=== PATIENT | male | born 1960 | race Caucasian/White ===

== ENCOUNTER 2017-02-26 06:34 | Emergency (ER) | payer BC ==
[2017-02-26] MEDS ORDERED: EPINEPHRINE ABBOJECT 1 MG IV ONE (06:35)
[2017-02-26] MEDS ORDERED: Sodium Chloride 0.9% 1000 ML 2,000 ML ONE (06:40)
--- NOTE | 2017-02-26 07:09 | ERPHSYRPT ---
- History of Present Illness Time Seen by Provider: 02/26/17 06:34 Source: family, EMS Exam Limitations: clinical condition (patient is intubated CPR is in progress) Physician History: 56-year-old white male brought by medics with CPR in progress who is intubated . Patient apparently collapsed this morning patient's states that the patient has been complaining for 2 weeks of chest pain off and on she states that since last Wednesday he was having episodes of vomiting. She states the patient went home last night about 10:30 and preferred to lay on the floor. The patient's states that she thought she heard patient gasp. She states that she went to check on the patient and he was unresponsive therefore medics were summoned. According to the medics, they arrived at 0556 this morning they noted the patient to have a junctional rhythm which was pulseless patient was given defibrillation patient went into asystole patient was given 6 doses of epinephrine intubated interosseous was placed. Patient arrives with CPR in progress at 634 patient is unresponsive pupils are fixed there are bilateral breath sounds with bag ventilation there is an absent pulse. Asystole is noted on the monitor. CPR is continued IV access was placed in the left forearm. Patient was continued with epinephrine every 3 minutes IV 1 mg 6. Patient without response. code was discontinued at 0 6:54 AM after CPR was discontinued patient was examined patient was asystole on monitor , absent pulse, absent respiration, pupils fixed, absent corneal reflex, no response to pain. I discussed the patient's condition with the patient's . She states the patient had been having chest for pain for 2 weeks off and on he would not go to the doctor she states he has been vomiting since Wednesday. He states he did not have any big medical problems. Case is discussed with Oksana Hernandez, deputy sheriff court services for [facility]. Will leave ET tube in place IVs in place Oksana Hernandez will come to examine the patient and discussed the patient with the patient's . Timing/Duration: other (arrived ad 06:34 am) Severity: severe Associated Symptoms: other (patient's states chest pain and diaphoresis off and on for 2 weeks, vomiting since Wednesdaycollapsed this morning just prior to medics being called medics arrived 0 556) - Review of Systems All Other Systems: Unable due to condition (patient unable to provide review of systems, patient's states chest pain, diaphoresis 2 weeks vomiting since Wednesday states she thought he had the flu) - Past Medical History Other Medical History: states no previous past medical history - Physical Exam General Appearance: other (well-developed obese white male had is dusky in color. Patient is intubated and unresponsive) Eye Exam: other (pupils fixed absent corneal reflex) Ears, Nose, Throat Exam: other (ET tube in place) Neck Exam: normal inspection, non-tender, supple, full range of motion Respiratory Exam: other (breath sounds bilaterally with bag ventilation through ET tube) Cardiovascular Exam: other (absent pulse absent heart rate) Gastrointestinal/Abdomen Exam: soft, normal bowel sounds, No tenderness, No mass Extremity Exam: normal inspection, normal range of motion, pelvis stable Neurologic Exam: other (unresponsive to pain or stimuli) Skin Exam: other (head dusky in color) - Course Nursing assessment & vital signs reviewed: Yes Rhythm Strip: Asystole Ordered Tests: Medication Summary Discontinued Medications Generic Name Dose Route Start Last Admin Trade Name Honorio PRN Reason Stop Dose Admin Sodium Chloride Confirm 02/26/17 06:40 Sodium Chloride 0.9% 1000 Ml Administered 02/26/17 06:41 Dose 2,000 mls @ ud .ROUTE .[facility] - Progress Progress: unchanged Progress Note: 02/26/ 02/26/17 07:16 This is a 56-year-old white male who arrives in asystole Patient has CPR in progress being performed by medics he has been intubated he has an interosseous line in the left tibia/fibula, The patient's states that he has been having 2 weeks of chest pain and diaphoresis which she states she has not been seen by a physician for she states that he has been having vomiting since Wednesday him he states that last night he was not feeling well went home from work shows delay on the floor. This morning she states she heard him gasp and went to check on him and found him unresponsive. She states she summoned the medics. Medics state they arrived at approximately 5:56 AM on their arrival patient was unresponsive he had what appeared to be a junctional rhythm he was given defibrillation after which she was noted to be in asystole. Medics placed a interosseous line intubated the patient and patient was given CPR with 6 rounds of epinephrine 1 mg IV as well as 1 amp of bicarbonate. On arrival in the emergency room at 6:34 AM patient is intubated and unresponsive pupils are fixed there is absent corneal reflex there is bilateral breath sounds with bag ventilation he has no palpable pulse or heart sounds. He is asystole on the monitor. CPR is continued patient received 6 rounds of epinephrine in the emergency room. Patient had arrived into the emergency room I discussed the patient's case with her. And because patient was unresponsive Treatment I discussed with her the fact that we would discontinue CPR and ACLS protocol. CPR was discontinued at 0 654. After discontinuation patient was unresponsive. Absent pulse. Absent respiration. Pupils fixed. Absent corneal reflex. No response to pain. Patient is at 0 6:54 AM. automobile service [employer] mechanic Oksana Tinajero is contacted. Patient is discussed with her. She requested that the patient's tubes and IVs be left in place. She will come see the patient in the emergency room. She also will come talk with the patient's . - Departure Time of Disposition: 07:21 Departure Disposition: Clinical Impression: Cardiac arrest, Respiratory arrest Condition: Critical Care Time: No Referrals: DOCTOR,NO FAMILY [Primary Care Provider] -
== END 2017-02-26 08:43 | disposition expired ==
LOC: EDBD 06:34 → ED 06:34
DX: I46.9 Cardiac arrest, cause unspecified (principal); R09.2 Respiratory arrest
CPT/HCPCS: 36000; 94799; 99285; 99291; J0171